=== PATIENT | female | born 1990 | race Two or more races ===

== ENCOUNTER 2021-02-17 22:12 | Emergency (ER) | payer OTHER ==
[2021-02-17 22:55] LABS: HEMOGLOBIN 12.7 gm/dl (12.3-15.3); RED BLOOD COUNT 4.79 M/UL (4.00-5.10); WHITE BLOOD COUNT 10.5 K/UL (4.5-11.0)
[2021-02-17 23:21] LABS: BUN/CREATININE RATIO 17 (0-10)
== END 2021-02-17 23:00 | disposition home or self-care (01) ==
LOC: ER1 22:12
PROVIDERS: Physician Assistant
DX: R07.89 Other chest pain (principal); R06.02 Shortness of breath
CPT/HCPCS: 71045; 80053; 82550; 82553; 83874; 84484; 85025; 85379; 93005; 99285

== ENCOUNTER 2021-12-07 04:25 | Emergency (ER) | payer OTHER ==
[2021-12-07] MEDS ORDERED: PREDNISONE 20 M20 MG GT (05:44)
== END 2021-12-07 05:53 | disposition home or self-care (01) ==
LOC: ER1 04:25
DX: T78.3XXA Angioneurotic edema, initial encounter (principal)
CPT/HCPCS: 96374; 96375; 99283; J2930